=== PATIENT | female | born 1980 | race Two or more races ===

== ENCOUNTER 2016-10-12 20:36 | Emergency (ER) | payer SELFPAY ==
[2016-10-12 20:49] VITALS: BP 129/100; PULSE 101; RESP 16; TEMP 98.1; O2SAT 95
== END 2016-10-12 20:54 | disposition left against medical advice (07) ==
LOC: CED 20:36
DX: Z53.21 Procedure and treatment not carried out due to patient leaving prior to being seen by health care provider (principal)